=== PATIENT | female | born 1955 | race Caucasian/White ===

== ENCOUNTER 2019-11-21 07:58 | Day surgery (SDC) | payer MEDICARE ==
[2019-11-21] MEDS ORDERED: BUPIVACAINE 0.5% VIAL IJ ONE (07:59)
[2019-11-21] MEDS ORDERED: Depo-Medrol 40 MG/ML IM ONE (07:59)
--- NOTE | 2019-11-21 11:38 | XRAY ---
Indication: Bilateral ischial bursa injection.. Intraoperative fluoroscopy was provided for 56 seconds. 2 digital spot images submitted for interpretation demonstrates needle tip projecting over the inferior left and right ischial tuberosity. Small amount of contrast injected for both needle tip placement. Correlate with intraoperative findings/report.
--- NOTE | 2019-11-21 11:40 | XRAY ---
56 seconds fluoroscopy time in surgery for bilateral ischial bursa injections.
[2019-11-21] MEDS ORDERED: Lactated Ringers 1,000 ML IV ONE (15:23)
== END 2019-11-21 10:05 | disposition home or self-care (01) ==
LOC: SDC-PAIN 07:58
PROVIDERS: ATTEND Psychiatry & Neurology Pain Medicine
DX: M70.72 Other bursitis of hip, left hip (principal); M70.71 Other bursitis of hip, right hip; E11.9 Type 2 diabetes mellitus without complications; I48.91 Unspecified atrial fibrillation; Z79.899 Other long term (current) drug therapy
CPT/HCPCS: 20610; 72170; 77002; 82962; J1030; J2704; Q9966

== ENCOUNTER 2019-12-05 08:51 | Day surgery (SDC) | payer MEDICARE ==
[2019-12-05] MEDS ORDERED: BUPIVACAINE 0.5% VIAL IJ ONE (08:52)
[2019-12-05] MEDS ORDERED: DIPRIVAN 200 MG/20 ML IV ONE (08:52)
[2019-12-05] MEDS ORDERED: Ketamine HCl 50 MG/ML IV ONE (08:52)
[2019-12-05] MEDS ORDERED: Depo-Medrol 40 MG/ML IM ONE (08:52)
--- NOTE | 2019-12-05 11:49 | XRAY ---
Indication: Bilateral ischial bursa injection. Intraoperative fluoroscopy was provided for 36 seconds. 2 digital spot images submitted for interpretation demonstrates needle tip projecting over the inferior left and right ischial tuberosity. Small amount of contrast injected for both needle tip placement. Correlate with intraoperative findings/report.
--- NOTE | 2019-12-05 11:51 | XRAY ---
36 seconds fluoroscopy time in surgery for bilateral ischial bursa injection.
[2019-12-05] MEDS ORDERED: Lactated Ringers 1,000 ML IV ONE (15:09)
== END 2019-12-05 10:47 | disposition home or self-care (01) ==
LOC: SDC-PAIN 08:51
PROVIDERS: ATTEND Psychiatry & Neurology Pain Medicine
DX: M70.72 Other bursitis of hip, left hip (principal); M70.71 Other bursitis of hip, right hip; E11.9 Type 2 diabetes mellitus without complications; I48.91 Unspecified atrial fibrillation; Z79.899 Other long term (current) drug therapy
CPT/HCPCS: 20610; 36415; 72170; 77002; 82962; J1030; J2704; Q9966